=== PATIENT | female | born 1990 | race Two or more races ===

== ENCOUNTER 2022-03-31 21:41 | Inpatient (IN) ==
[2022-03-31] MEDS ORDERED: OXYTOCIN/LR 20 UNIT/1,000 ML BAG IV PRN (21:55)
[2022-03-31] MEDS ORDERED: TRANEXAMIC ACID 1,000 MG in SODIUM CHLORIDE 0.9% 100 ML IV PRN (21:55)
[2022-03-31] MEDS ORDERED: BUTORPHANOL 2 MG/ML VIAL IV PRN (21:55)
[2022-03-31] MEDS ORDERED: ONDANSETRON 4 MG/2 ML VIAL IV PRN (21:55)
[2022-03-31] MEDS ORDERED: METHYLERGONOVINE 0.2 MG/1 ML AMP IM PRN (21:55)
[2022-03-31] MEDS ORDERED: miSOPROStoL 200 MCG TABLET RECTAL PRN (21:55)
[2022-03-31] MEDS ORDERED: CARBOPROST TROMETHAMINE 250 MCG/ML AMP IM PRN (21:55)
[2022-03-31 22:23] LABS: Basophils % 0.5 % (0.0-0.8); Eosinophils # 0.1 10*3/uL (0.0-0.87); Eosinophils % 1.4 % (0.00-10.9); Hematocrit 30.7 VOL% (35.7-47.0); Hemoglobin 10.5 GM/DL (12.0-16.0); Immature Granulocytes % 3.5 %; Immature Granulocytes Absolute 0.23 #; Lymphocytes # 1.6 10*3/uL (1.4-4.0); Lymphocytes % 24.3 % (21.3-54.2); Mean Corpuscular HGB Conc 34.2 GM/DL (32-36); Mean Corpuscular Volume 89.8 FL (87-102); Mean Platelet Volume 9.7 FL (9.6-12.0); Monocytes # 0.6 10*3/uL (0.11-0.8); Monocytes % 9.2 % (1.7-12.7); Neutrophils % 61.1 % (38.7-73.9); Platelet Count 143 T/CUMM (130-400); Red Blood Count 3.42 MC/CUMM (3.8-5.5); Red Cell Distribution Width 12.8 % (9.3-17.3); White Blood Count 6.6 T/CUMM (4-12)
[2022-03-31 22:42] LABS: Albumin 2.7 G/DL (3.4-5.0); Bilirubin,Total 0.4 MG/DL (0.20-1.00); Calcium 8.9 MG/DL (8.5-10.1); Potassium 3.8 MMOL/L (3.5-5.1); Total Protein 6.4 G/DL (6.4-8.2)
[2022-03-31] MEDS ORDERED: OXYTOCIN/LR 30 UNIT/1,000 ML BAG IV PRN (23:08)
[2022-03-31] MEDS ORDERED: PROMETHAZINE 25 MG/1 ML VIAL IM PRN (23:09)
[2022-03-31] MEDS ORDERED: diphenhydrAMINE 50 MG/1 ML VIAL IV PRN ×2 (23:09)
[2022-03-31] MEDS ORDERED: fentaNYL 2 MCG/ROPIV 0.2% EPID 100 ML EPIDURAL PRN (23:09)
[2022-03-31] MEDS ORDERED: hydrOXYzine HCL 25 MG/1 ML VIAL IM PRN (23:09)
[2022-03-31] MEDS ORDERED: NALOXONE 0.4 MG/ML VIAL IV PRN (23:09)
[2022-03-31] MEDS ORDERED: ePHEDrine 50 MG/ML VIAL IV PRN (23:09)
[2022-04-01] MEDS ORDERED: FAMOTIDINE 20 MG/2 ML VIAL IV PRN (01:58)
[2022-04-01] MEDS ORDERED: CITRIC ACID/SODIUM CITRATE 30 ML UDCUP PO PRN (01:58)
[2022-04-01] MEDS: LACTATED RINGERS 1,000 ML IV PRN ×2 (08:02→10:54)
[2022-04-01 09:39] LABS: Rubella Antibody IgG Result Reactive (NonReactive)
[2022-04-01 09:59] LABS: HIV Antigen/Antibody Result Nonreactive (Nonreactive); Hepatitis B Surface Ag Quant 0.23 Index; Hepatitis B Surface Ag Result Non-Reactive (NonReactive)
[2022-04-01 12:50] LABS: Bilirubin,Urine Negative (Negative); Blood, Urine Negative (Negative); Glucose,Urine (UA) Negative (Negative); Ketones,Urine 15 mg/dL (Negative); Mucus,Urine Occasional /LPF (Occasional); Nitrite,Urine Negative (Negative); Protein,Urine Negative (Negative); Urine Appearance Clear (Clear); Urine Color Yellow (Yellow); Urine Specific Gravity 1.015 (1.001-1.035); Urine pH 8.5 (4.5-8.0)
[2022-04-01 12:51] LABS: Urine Urobilinogen 0.2 eU/dL (<2.0)
[2022-04-01] MEDS ORDERED: TRANEXAMIC ACID 1,000 MG/10 ML VIAL ONE (14:35)
[2022-04-01] MEDS ORDERED: SODIUM CHLORIDE 0.9% 0 ML IV ONE (14:35)
[2022-04-01] MEDS ORDERED: miSOPROStoL 200 MCG TABLET ONE (14:35)
[2022-04-01] MEDS ORDERED: CARBOPROST TROMETHAMINE 250 MCG/ML AMP IM ONE (14:36)
[2022-04-01] MEDS ORDERED: METHYLERGONOVINE 0.2 MG/1 ML AMP ONE (14:36)
[2022-04-01 15:34] LABS: Cord Arterial Blood HCO3 20.2 MMOL/L
[2022-04-01 15:37] LABS: Cord Venous Blood HCO3 21.9 MMOL/L; Cord Venous Blood PCO2 37.6 MMHG; Cord Venous Blood PO2 32.9
[2022-04-01] MEDS ORDERED: DIPH/TET/ACEL PERT BOOSTER VACCINE 0.5 ML VIAL IM ONE (15:56)
[2022-04-01] MEDS ORDERED: WITCH HAZEL PADS 100/JAR TOP PRN (15:56)
[2022-04-01] MEDS ORDERED: RHO(D) IMMUNE GLOBULIN 300 MCG SYRINGE IM ONE (15:56)
[2022-04-01] MEDS ORDERED: BISACODYL 10 MG SUPP RECTAL PRN (15:56)
[2022-04-01] MEDS ORDERED: oxyCODONE/ACETAMINOPHEN 5-325 MG TABLET PO PRN ×2 (15:56)
[2022-04-01] MEDS ORDERED: OXYTOCIN/LR 20 UNIT/1,000 ML BAG IV ONE (15:56)
[2022-04-01] MEDS ORDERED: LANOLIN 50% CREAM 0.3 OZ TUBE TOP PRN (15:56)
[2022-04-01] MEDS ORDERED: IBUPROFEN 800 MG TABLET PO PRN (15:56)
[2022-04-01] MEDS ORDERED: MEASLES/MUMPS/RUBELLA VACCINE 0.5 ML VIAL SUBCUT ONE (15:56)
[2022-04-01] MEDS ORDERED: ACETAMINOPHEN 325 MG TABLET PO PRN (15:56)
[2022-04-01] MEDS ORDERED: BENZOCAINE 20%/MENTHOL 0.5% SPRAY 56 GM CAN TOP PRN (15:56)
[2022-04-01] MEDS ORDERED: ONDANSETRON 4 MG/2 ML VIAL IV PRN (15:56)
[2022-04-01] MEDS ORDERED: HYDROCORTISONE 2.5% RECTAL CREAM 30 GM TUBE TOP PRN (15:56)
[2022-04-01] MEDS ORDERED: ACETAMINOPHEN 500 MG TABLET PO PRN (16:34)
[2022-04-01] MEDS ORDERED: AMPICILLIN INJ 2,000 MG in SODIUM CHLORIDE 0.9% 100 ML IV SCH (17:00)
[2022-04-01] MEDS: DOCUSATE SODIUM 100 MG CAPSULE PO SCH (21:11)
[2022-04-01] MEDS: AMPICILLIN INJ 2,000 MG in SODIUM CHLORIDE 0.9% 100 ML IV SCH (23:25)
[2022-04-01] MEDS: ACETAMINOPHEN 500 MG TABLET PO SCH (23:28)
[2022-04-02 05:06] LABS: Basophils % 0.3 % (0.0-0.8); Eosinophils % 0.1 % (0.00-10.9); Hematocrit 28.7 VOL% (35.7-47.0); Hemoglobin 9.3 GM/DL (12.0-16.0); Immature Granulocytes % 1.3 %; Immature Granulocytes Absolute 0.15 #; Lymphocytes # 0.5 10*3/uL (1.4-4.0); Lymphocytes % 4.5 % (21.3-54.2); Mean Corpuscular HGB Conc 32.4 GM/DL (32-36); Mean Corpuscular Volume 92.6 FL (87-102); Mean Platelet Volume 9.9 FL (9.6-12.0); Monocytes # 0.6 10*3/uL (0.11-0.8); Monocytes % 4.9 % (1.7-12.7); Neutrophils % 88.9 % (38.7-73.9); Platelet Count 100 T/CUMM (130-400); Red Cell Distribution Width 13.2 % (9.3-17.3); White Blood Count 11.2 T/CUMM (4-12)
[2022-04-02] MEDS: ACETAMINOPHEN 500 MG TABLET PO SCH ×3 (05:08→18:16)
[2022-04-02] MEDS: AMPICILLIN INJ 2,000 MG in SODIUM CHLORIDE 0.9% 100 ML IV SCH ×4 (05:10→22:45)
[2022-04-02 05:44] LABS: Band Neutrophils 6 % (0-10); Hypochromia Slight; Lymphocytes 3 % (20-55); Microcytosis Slight; Total Cells Counted 100
[2022-04-02] MEDS: DOCUSATE SODIUM 100 MG CAPSULE PO SCH ×2 (09:25→22:45)
[2022-04-03] MEDS: AMPICILLIN INJ 2,000 MG in SODIUM CHLORIDE 0.9% 100 ML IV SCH (05:47)
[2022-04-03] MEDS: DOCUSATE SODIUM 100 MG CAPSULE PO SCH (09:56)
[2022-04-03 14:00] VITALS: BP 99/63
== END 2022-04-03 17:00 | disposition home or self-care (01) | DRG 807 ==
LOC: N.LD 21:41 → N.OB 04-01 18:10
PROVIDERS: ADMIT Obstetrics & Gynecology; ATTEND Obstetrics & Gynecology